=== PATIENT | female | born 1940 | race Caucasian/White ===

== ENCOUNTER 2020-08-10 12:47 | Observation (INO) | payer MEDICARE ==
[~2020-08-10] VITALS: Ht 170.2 cm; Wt 78.0 kg
[2020-08-10] MEDS ORDERED: TRAMADOL HCL50 MG PO (16:02)
[2020-08-10] MEDS ORDERED: COZAAR100 MG PO (16:03)
[2020-08-10] MEDS ORDERED: TOPROL XL50 MG PO (16:03)
[2020-08-10] MEDS ORDERED: ELIQUIS5 MG PO (16:03)
[2020-08-10] MEDS ORDERED: LIPITOR20 MG PO (16:03)
[2020-08-10] MEDS ORDERED: NEURONTIN300 MG PO (16:04)
[2020-08-10] MEDS ORDERED: CATAFLAM50 MG PO (16:04)
[2020-08-10] MEDS ORDERED: DILTIAZEM 24HR300 M1 PO (16:44)
[2020-08-11 02:32] LABS: HEMOGLOBIN 14.2 gm/dl (12.3-15.3); RED BLOOD COUNT 4.97 M/UL (4.00-5.10); WHITE BLOOD COUNT 8.1 K/UL (4.5-11.0)
[2020-08-11] MEDS ORDERED: ZOFRAN 4 MG TAB4 MG PO (16:03)
--- NOTE | 2020-08-11 16:30 | NUR ---
PT LEFT VIA TRANSPORT AT THER SIDE WITH NO C/O
== END 2020-08-11 16:19 | disposition home or self-care (01) ==
LOC: PROG CARE 15:17
PROVIDERS: Physician Assistant Medical; ADMIT Internal Medicine
DX: I48.91 Unspecified atrial fibrillation (principal); I10 Essential (primary) hypertension; E78.5 Hyperlipidemia, unspecified; J44.9 Chronic obstructive pulmonary disease, unspecified; I49.5 Sick sinus syndrome; R11.2 Nausea with vomiting, unspecified; Z20.822 Contact with and (suspected) exposure to COVID-19; Z95.0 Presence of cardiac pacemaker; Z87.891 Personal history of nicotine dependence; Z79.01 Long term (current) use of anticoagulants; Z79.891 Long term (current) use of opiate analgesic; Z79.899 Other long term (current) drug therapy; Z88.1 Allergy status to other antibiotic agents
CPT/HCPCS: ECHO; 36415; 80048; 82550; 82553; 83735; 84439; 84443; 84484; 85027; 93005; 93306; G0378; G0379